=== PATIENT | female | born 1975 | race Caucasian/White ===

== ENCOUNTER 2023-07-25 09:53 | Outpatient (REF) | payer OTHER, SELFPAY ==
--- NOTE | 2023-07-25 09:58 | EMG_ITS ---
Chief complaint: Right elbow pain, hand numbness Reason for referral: Evaluate for ulnar neuropathy Referred by: Dr. Crys Gordon Procedure done: Right upper extremity NCS/EMG Precautions and/or limitations: None The limb temperature was monitored continuously and remained between 32-36 degrees C during the performance of the NCS. Ulnar motor NCS was performed with moderate elbow flexion between 70-90 degrees, with across-elbow distance of 10 cm. Nerve Conduction Studies Anti Sensory Summary Table ?Stim Site NR Onset (ms) Norm Onset (ms) Peak (ms) Norm Peak (ms) O-P Amp (?V) Norm O-P Amp Site1 Site2 Delta-0 (ms) Dist (cm) Ammon (m/s) Norm Ammon (m/s) Right Median Anti Sensory (2nd Digit) Wrist ? 2.6 3.2 <3.6 15.5 >10 Wrist 2nd Digit 2.6 14.0 54 Right Radial Anti Sensory (Thumb) Forearm ? 1.5 2.0 <3.1 45.8 Forearm Thumb 1.5 0.0 Right Ulnar Anti Sensory (5th Digit) Wrist ? 2.5 3.3 <3.7 19.4 >15.0 Wrist 5th Digit 2.5 14.0 56 Motor Summary Table ?Stim Site NR Onset (ms) Norm Onset (ms) O-P Amp (mV) Norm O-P Amp iAmp (mV) Amp (1st) (%) Site1 Site2 Delta-0 (ms) Dist (cm) Ammon (m/s) Norm Ammon (m/s) Right Median Motor (Abd Poll Brev) Wrist ? 3.8 <3.9 15.3 >4.5 18.9 100.0 Elbow Wrist 3.6 20.0 56 >45 Elbow ? 7.4 14.6 17.8 95.4 Right Ulnar Motor (Abd Dig Minimi) Wrist ? 2.7 <3.0 11.1 >5 15.7 100.0 B Elbow Wrist 3.0 17.0 57 >45 B Elbow ? 5.7 10.6 14.0 95.5 A Elbow B Elbow 1.7 10.0 59 >45 A Elbow ? 7.4 10.2 13.5 91.9 EMG ?Side Muscle Nerve Root Ins Act Fibs Psw Amp Dur Poly Recrt Int Pat Comment Right 1stDorInt Ulnar C8-T1 Nml Nml Nml Nml Nml 0 Nml Complete Right FlexCarRad Median C6-7 Nml Nml Nml Nml Nml 0 Nml Complete Right Biceps Musculocut C5-6 Nml Nml Nml Nml Nml 0 Nml Complete Right Triceps Radial C6-7-8 Nml Nml Nml Nml Nml 0 Nml Complete Right Deltoid Axillary C5-6 Nml Nml Nml Nml Nml 0 Nml Complete FINDINGS: All motor and sensory nerves tested showed normal latencies, amplitudes and conduction velocities. Concentric needle EMG was performed in selected muscles of the right upper extremity. Study did not reveal signs of electric abnormalities as shown in the table below. IMPRESSION: 1. This is a normal study. 2. There is no electrodiagnostic evidence for median neuropathy, ulnar neuropathy, brachial plexopathy, or cervical radiculopathy. Thank you for your kind referral. Kylah Sky MD, [place] Board Certified, [place] [employer] (ABPMR) Board Certified, [place] [employer] Electro[employer] (ABEM) [place] [id number] [facility]
== END 2023-07-25 09:54 | disposition home or self-care (01) ==
LOC: HO.NEURO 09:53
PROVIDERS: Visit Provider Internal Medicine
DX: R20.2 Paresthesia of skin (principal)
CPT/HCPCS: 95886; 95909

== ENCOUNTER → 2023-07-25 09:58 | Outpatient (BNV) | payer OTHER, SELFPAY | PROVIDERS: Visit Provider Physical Medicine & Rehabilitation | DX: M25.521 Pain in right elbow (principal); M79.641 Pain in right hand; R20.0 Anesthesia of skin | CPT/HCPCS: 95886; 95909 ==